=== PATIENT | female | born 1990 | race Caucasian/White ===

== ENCOUNTER → 2021-06-14 | Outpatient (CLI) | payer OTHER | LOC: DIA.ED 08:25 | DX: O24.419 Gestational diabetes mellitus in pregnancy, unspecified control (principal) | CPT/HCPCS: G0108 ==

== ENCOUNTER → 2021-07-05 | Outpatient (CLI) | payer OTHER | LOC: DIA.ED 07:45 | DX: O24.419 Gestational diabetes mellitus in pregnancy, unspecified control (principal) | CPT/HCPCS: G0108 ==

== ENCOUNTER 2021-08-04 09:04 | Inpatient (IN) | payer OTHER ==
[~2021-08-04] VITALS: Ht 154.9 cm; Wt 62.3 kg
[2021-08-06] VITALS (9 sets, daily range): BP systolic 101–131; BP diastolic 57–80; PULSE 54–75; TEMP 98.5
--- NOTE | 2021-08-06 19:15 | NUR ---
191- PATIENT AND SPOUSE AMBULATORY TO THE UNIT. PATIENT ORIENTATED TO ROOM AND CHANGED INTO CLEAN GOWN. PATIENT IS A AT 38 WEEKS HERE FOR A CYTOTEC INDUCTION. REPORTS GFM, NO LOF AND OCCASIONAL CONTRACTIONS. 1919- EFM AND TOCO ON AND TRACING. VITALS TAKEN, ASSESSMENT COMPLETED. PLAN OF CARE DISCUSSED. CONSENTS SIGNED. PATIENT VERBALIZED UNDERSTANDING WITH NO FURTHER QUESTIONS. CALL LIGHT WITHIN REACH.
[2021-08-06] MEDS ORDERED: UNISOM25 MG PO (20:05)
[2021-08-06] MEDS ORDERED: PRENATAL TABLET PO (20:05)
[2021-08-06] MEDS ORDERED: VITAMINC1000TA (20:06)
[2021-08-06] MEDS ORDERED: MAGNESIUM ELEM300 MG PO (20:06)
[2021-08-06 20:29] LABS: BASO % 0.2 % (0.0-2.0); EOS % 0.2 % (0.0-4.0); GRAN # 6.9 K/mm3 (1.4-6.5); GRAN % 76.7 % (42.2-75.2); HEMOGLOBIN 12.2 g/dl (12.5-16.0); LYMPH # 1.4 K/mm3 (1.2-3.4); LYMPH % 15.2 % (20.0-51.0); MEAN CELL VOLUME 85 fl (80.0-100.0); MEAN CORPUSCULAR HEMOGLOBIN 29 pg (27-31); MEAN CORPUSCULAR HGB CONC 34 g/dl (33.0-37.0); MEAN PLATELET VOLUME 11.1 fl (7.4-10.4); MONO # 0.7 K/mm3 (0.1-0.6); MONO % 7.4 % (1.7-9.3); PLATELET COUNT 217 K/mm3 (130-400); RED BLOOD COUNT 4.22 M/mm3 (4.10-5.30); REDCELL DISTRIBUTION WIDTH-CV 13.6 % (11.5-14.5)
[2021-08-07] VITALS (40 sets, daily range): BP systolic 93–126; BP diastolic 51–79; PULSE 49–102; TEMP 97.7–98.7
--- NOTE | 2021-08-07 07:25 | NUR ---
0725 - MD SHALOM AT BEDSIDE. PLAN OF CARE DISCUSSED. 0728 - AROM PERFORMED BY MD SHALOM. CLEAR FLUID NOTED. CARE ONGOING.
--- NOTE | 2021-08-07 08:32 | NUR ---
0832 - SHARON MONROE AT BEDSIDE. PATIENT POSITIONED FOR EPIDURAL PLACEMENT. 0839 - SINGLE SHOT GIVEN BY CALL CENTRE SUPERVISOR. PATIENT TOLERATING PROCEDURE WELL. 0849 - SUBTLE DECEL FROM BASELINE OF 140 TO 120 LASTING 90 SECONDS NOTED. TOCO TRACING INDESCERNIBLE. DIFFICULT TO DETERMINE FHR DECEL ONSET. TOCO ADJUSTED. CARE ONGOING.
--- NOTE | 2021-08-07 11:40 | NUR ---
1140 - LAZAR REMOVED. PATIENT PUSHING WITH CONTRACTIONS. GOOD MATERNAL EFFORT. 1159 - MD SHALOM CALLED AND REQUESTED AT BEDSIDE FOR DELIVERY. 1208 - MD SHALOM AT BEDSIDE. PATIENT CONTINUES PUSHING WITH CONTRACTIONS WITH GOOD MATERNAL EFFORT. 1213 - INFANT'S HEAD FOLLOWED BY BODY DELIVERED. CARE OF INFANT ASSUMED BY NURSERY RN. 1215 - INTACT PLACENTA DELIVERED. PITOCIN INITIATED. SECOND DEGREE LAC REPAIRED BY MD SHALOM. GISSEL CARE PROVIDED. PADS CHANGED. SAFETY PRECAUTIONS REVIEWED. SEE DOCTOR DICTATION, ANESTHESIA RECORD AND NURSES NOTES.
--- NOTE | 2021-08-07 18:30 | NUR ---
Report recieved. Resting in bed while . Voided 400mls. Updated whiteboard and reviewed POC.
[2021-08-08 00:30] VITALS: BP 114/75; PULSE 77; TEMP 98.2
[2021-08-08 05:15] VITALS: BP 116/71; PULSE 75; TEMP 97.7
[2021-08-08 07:30] VITALS: BP 102/70; PULSE 65; TEMP 97.8
--- NOTE | 2021-08-08 07:30 | NUR ---
Rests in bed, alert. States pain at a six. Offered more pain medication. States refuses.
--- NOTE | 2021-08-08 10:34 | NUR ---
Initial visit; Parents thanked Radiation Control Technician for offering congratulations and God's blessings for the of their daughter. Radiation Control Technician thanked family for choosing [facility].
[2021-08-08] MEDS ORDERED: MOTRIN 800800 MG/TAB PO (11:07)
== END 2021-08-08 16:20 | disposition home or self-care (01) | DRG 805 ==
LOC: LDR 08-06 09:03 → OB 08-06 19:02 → LDR 08-06 19:02 → OB 08-07 16:00
PROVIDERS: ADMIT Obstetrics & Gynecology
PROC: 10E0XZZ Delivery of Products of Conception, External Approach (ICD-10-PCS; principal; 2021-08-06)
PROC: 0KQM0ZZ Repair Perineum Muscle, Open Approach (ICD-10-PCS; 2021-08-06)
PROC: 10907ZC Drainage of Amniotic Fluid, Therapeutic from Products of Conception, Via Natural or Artificial Opening (ICD-10-PCS; 2021-08-06)
PROC: 3E0P7VZ Introduction of Hormone into Female Reproductive, Via Natural or Artificial Opening (ICD-10-PCS; 2021-08-06)
DX: O26.62 Liver and biliary tract disorders in childbirth (principal); K83.1 Obstruction of bile duct; Z37.0 Single live birth; O24.420 Gestational diabetes mellitus in childbirth, diet controlled; O70.1 Second degree perineal laceration during delivery; Z3A.38 38 weeks gestation of pregnancy
CPT/HCPCS: J2590; J7120